=== PATIENT | male | born 1960 | race African-American/Black ===

== ENCOUNTER 2017-10-01 20:12 | Inpatient (IN) | payer MEDICAID, OTHER ==
[~2017-10-01] VITALS: Ht 182.9 cm; Wt 90.0 kg
[2017-10-01 20:58] LABS: BASOPHILS % 0.8 % (0.0-2.0); EOSINOPHILS % 0.9 % (0.0-5.0); HEMATOCRIT. 35.5 % (42.0-52.0); LYMPHOCYTES % 13.7 % (20.0-50.0); MEAN CORPUSCULAR HEMOGLOBIN 27.9 pg (28.0-32.0); MEAN CORPUSCULAR VOLUME 82.5 fL (80.0-94.0); MEAN PLATELET VOLUME 9.4 fl (7.4-10.4); MONOCYTES % 12.2 % (2.0-8.0); NEUTROPHILS % 72.4 % (40.0-76.0); PLATELET 241 x1000/uL (130-400); RED CELL DISTRIBUTION WIDTH 14.5 % (11.6-14.6)
[2017-10-01 21:00] LABS: CHLORIDE 105 mEq/L (98-107)
[2017-10-01 21:01] LABS: INR 1.1; PROTHROMBIN TIME 11.6 sec (9.4-11.6)
[2017-10-01] MEDS ORDERED: MORPHINE SULFATE 2 MG/ML CPJ (NOT FOR IM USE) IV ONE (22:00)
[2017-10-01] MEDS ORDERED: LABETALOL HCL 20MG/4ML CARPUJECT IV ONE ×2 (22:00→23:30)
[2017-10-01] MEDS ORDERED: FUROSEMIDE 20MG/2ML VIAL IVP ONE (22:00)
[2017-10-01] MEDS ORDERED: MORPHINE SULFATE 4 MG/ML CPJ (NOT FOR IM USE) IV ONE (22:17)
[2017-10-01] MEDS ORDERED: CEFTRIAXONE 1 G PREMIX 50 ML IV ONE (23:00)
[2017-10-01] MEDS ORDERED: ASPIRIN 325MG EC TABLET PO ONE (23:00)
[2017-10-01] MEDS: AZITHROMYCIN 500 MG TABLET PO SCH (23:49)
[2017-10-02] MEDS ORDERED: LABETALOL HCL 20MG/4ML CARPUJECT IV SCH (00:17)
[2017-10-02 01:30] LABS: *AMPHETAMINES SCREEN URINE NEGATIVE (NEGATIVE); *BARBITURATES SCREEN URINE NEGATIVE (NEGATIVE); *BENZODIAZEPINES SCREEN URINE NEGATIVE (NEGATIVE); *COCAINE SCREEN URINE NEGATIVE (NEGATIVE); CANNABINOID URINE SCREEN NEGATIVE (NEGATIVE); METHADONE URINE SCREEN NEGATIVE (NEGATIVE)
[2017-10-02] MEDS ORDERED: POTASSIUM CHLORIDE 20MEQ TABLET SR PO ONE (01:30)
[2017-10-02 01:31] LABS: OPIATES URINE SCREEN PRESUMTIVE POSITIVE (NEGATIVE); PHENCYCLIDINE URINE SCREEN NEGATIVE (NEGATIVE)
[2017-10-02] MEDS: CLONIDINE 0.3MG TABLET PO PRN ×2 (06:04→11:33)
[2017-10-02] MEDS: LISINOPRIL 20MG TABLET PO SCH (06:38)
[2017-10-02] MEDS ORDERED: HYDR-4134 PO (08:08)
[2017-10-02] MEDS ORDERED: INSU100I28 SQ (08:08)
[2017-10-02] MEDS ORDERED: CLON0.1T PO (08:08)
[2017-10-02] MEDS ORDERED: LOSA25TA12 PO (08:08)
[2017-10-02] MEDS ORDERED: FURO40TA5 PO (08:08)
[2017-10-02] MEDS: FUROSEMIDE 40MG TABLET PO SCH (08:53)
[2017-10-02] MEDS: HYDRALAZINE HCL 50MG TABLET PO SCH ×3 (08:53→20:48)
[2017-10-02] MEDS: LOSARTAN POTASSIUM 25 MG TABLET PO SCH (08:53)
[2017-10-02] MEDS: CLONIDINE 0.1MG TABLET PO SCH ×3 (08:54→20:48)
[2017-10-02] MEDS: AZITHROMYCIN 500 MG TABLET PO SCH (08:55)
[2017-10-02] MEDS ORDERED: [UNRECOGNIZED DRUG - OTHER] SQ SCH (09:00)
[2017-10-02] MEDS ORDERED: INSULIN GLARGINE HUM REC ANLOG 22 UNIT SQ SCH (09:00)
[2017-10-02] MEDS: IPRATROPIUM/ALBUTEROL 0.5-3(2.5)MG/3ML NEB HHN SCH ×3 (09:28→20:52)
[2017-10-02 09:55] VITALS: BP 183/79
[2017-10-02] MEDS ORDERED: INSULIN GLARGINE UD 100 UNITS/ML SYR SUBCUT SCH (10:00)
[2017-10-02] MEDS ORDERED: DEXTROSE 50% WATER 50ML SYRINGE IV PRN (12:15)
[2017-10-02] MEDS: INSULIN LISPRO 100 UNITS/ML SUBCUT SCH ×6 (12:30→21:21)
[2017-10-02 16:00] VITALS: BP 150/69
[2017-10-02] MEDS: BLOOD SUGAR DIAGNOSTIC STRIP TEST SCH ×2 (17:22→20:05)
[2017-10-02] MEDS ORDERED: POTASSIUM CHLORIDE 20MEQ TABLET SR PO NR (18:24)
[2017-10-02 20:00] VITALS: BP 169/76
[2017-10-02] MEDS: ACETAMINOPHEN 325MG TABLET PO PRN (20:47)
[2017-10-02] MEDS: PIPERACILLIN/TAZ 3.375G PREMIX 50 ML IV SCH (21:07)
[2017-10-02] MEDS: INSULIN GLARGINE UD 100 UNITS/ML SYR SUBCUT SCH (21:16)
[2017-10-03] VITALS (7 sets, daily range): BP systolic 136–215; BP diastolic 60–91
[2017-10-03] MEDS: IPRATROPIUM/ALBUTEROL 0.5-3(2.5)MG/3ML NEB HHN SCH ×5 (00:35→21:43)
[2017-10-03] MEDS: PIPERACILLIN/TAZ 3.375G PREMIX 50 ML IV SCH ×3 (04:56→21:14)
[2017-10-03] MEDS: HYDRALAZINE HCL 50MG TABLET PO SCH ×3 (05:00→21:13)
[2017-10-03] MEDS: CLONIDINE 0.1MG TABLET PO SCH ×3 (05:00→21:14)
[2017-10-03] MEDS ORDERED: POTASSIUM CHLORIDE 20MEQ TABLET SR PO SCH (05:45)
[2017-10-03 05:58] LABS: BASOPHILS % 0.6 % (0.0-2.0); EOSINOPHILS % 3.4 % (0.0-5.0); HEMATOCRIT. 27.6 % (42.0-52.0); LYMPHOCYTES % 22.1 % (20.0-50.0); MEAN CORPUSCULAR VOLUME 82.8 fL (80.0-94.0); MONOCYTES % 12.3 % (2.0-8.0); NEUTROPHILS % 61.6 % (40.0-76.0); PLATELET 212 x1000/uL (130-400); RED BLOOD CELL COUNT 3.33 mill/uL (4.7-6.1); RED CELL DISTRIBUTION WIDTH 14.1 % (11.6-14.6)
[2017-10-03] MEDS: BLOOD SUGAR DIAGNOSTIC STRIP TEST SCH ×4 (06:05→21:12)
[2017-10-03 06:29] LABS: HEMOGLOBIN. 9.3 g/dL (14.0-18.0)
[2017-10-03] MEDS: INSULIN LISPRO 100 UNITS/ML SUBCUT SCH ×7 (06:56→21:00)
[2017-10-03] MEDS: LOSARTAN POTASSIUM 25 MG TABLET PO SCH (08:07)
[2017-10-03] MEDS: ENOXAPARIN 40MG/0.4ML SYR SUBCUT SCH (08:07)
[2017-10-03] MEDS: FUROSEMIDE 40MG TABLET PO SCH (08:07)
[2017-10-03] MEDS: LISINOPRIL 20MG TABLET PO SCH (08:07)
[2017-10-03] MEDS: INSULIN GLARGINE UD 100 UNITS/ML SYR SUBCUT SCH ×2 (09:18→21:31)
[2017-10-03] MEDS: CLONIDINE 0.3MG TABLET PO PRN ×2 (09:20→23:50)
[2017-10-03] MEDS: AMLODIPINE 5MG TABLET PO SCH ×2 (12:34→21:13)
[2017-10-03] MEDS: FUROSEMIDE 40MG/4ML VIAL IVP SCH ×2 (12:34→17:32)
[2017-10-03] MEDS ORDERED: GUAIFENESIN 200MG TABLET PO PRN (13:30)
[2017-10-03] MEDS: LOSARTAN POTASSIUM 50 MG TABLET PO SCH (17:33)
[2017-10-03] MEDS: GUAIFENESIN 600MG ER TABLET PO SCH (21:13)
[2017-10-04] VITALS: BP 211/86
[2017-10-04] MEDS: HYDRALAZINE 20MG/ML VIAL IV PRN ×2 (01:07→13:06)
[2017-10-04 04:00] VITALS: BP 168/79
[2017-10-04] MEDS: IPRATROPIUM/ALBUTEROL 0.5-3(2.5)MG/3ML NEB HHN SCH ×6 (04:37→20:18)
[2017-10-04] MEDS: PIPERACILLIN/TAZ 3.375G PREMIX 50 ML IV SCH ×2 (05:01→12:57)
[2017-10-04] MEDS: CLONIDINE 0.1MG TABLET PO SCH ×3 (05:02→22:04)
[2017-10-04] MEDS: HYDRALAZINE HCL 50MG TABLET PO SCH ×3 (05:02→22:03)
[2017-10-04 05:51] LABS: BASOPHILS % 0.7 % (0.0-2.0); EOSINOPHILS % 3.1 % (0.0-5.0); HEMATOCRIT. 27.9 % (42.0-52.0); HEMOGLOBIN. 9.5 g/dL (14.0-18.0); LYMPHOCYTES % 19.1 % (20.0-50.0); MEAN CORPUSCULAR HEMOGLOBIN 28.1 pg (28.0-32.0); MEAN CORPUSCULAR VOLUME 82.4 fL (80.0-94.0); MEAN PLATELET VOLUME 9.7 fl (7.4-10.4); MONOCYTES % 11.6 % (2.0-8.0); NEUTROPHILS % 65.5 % (40.0-76.0); PLATELET 238 x1000/uL (130-400); RED BLOOD CELL COUNT 3.38 mill/uL (4.7-6.1); RED CELL DISTRIBUTION WIDTH 14.1 % (11.6-14.6)
[2017-10-04] MEDS: BLOOD SUGAR DIAGNOSTIC STRIP TEST SCH ×8 (06:04→23:27)
[2017-10-04] MEDS ORDERED: POTASSIUM CHLORIDE 20MEQ TABLET SR PO NR ×2 (06:33→11:00)
[2017-10-04] MEDS: FUROSEMIDE 40MG/4ML VIAL IVP SCH (06:45)
[2017-10-04] MEDS: INSULIN LISPRO 100 UNITS/ML SUBCUT SCH ×7 (06:46→21:00)
[2017-10-04 08:00] VITALS: BP 165/75
[2017-10-04] MEDS: GUAIFENESIN 600MG ER TABLET PO SCH ×2 (09:26→22:03)
[2017-10-04] MEDS: LOSARTAN POTASSIUM 50 MG TABLET PO SCH ×2 (09:26→17:14)
[2017-10-04] MEDS: AMLODIPINE 5MG TABLET PO SCH ×2 (09:26→22:01)
[2017-10-04] MEDS: ENOXAPARIN 40MG/0.4ML SYR SUBCUT SCH (09:27)
[2017-10-04] MEDS: INSULIN GLARGINE UD 100 UNITS/ML SYR SUBCUT SCH ×3 (12:57→23:20)
[2017-10-04] MEDS: SPIRONOLACTONE 25MG TABLET PO SCH (17:14)
[2017-10-04] MEDS: FUROSEMIDE 100MG/10ML VIAL IVP SCH (17:14)
[2017-10-04] MEDS ORDERED: CEFTRIAXONE 2 G in DEXTROSE 5% WATER 50 ML IV SCH (18:00)
[2017-10-04] MEDS ORDERED: AZITHROMYCIN 500 MG in DEXT 5% WATER 250 ML IV SCH (19:00)
[2017-10-04 20:00] VITALS: BP 155/75
[2017-10-04] MEDS: CEFTRIAXONE 2 G in DEXTROSE 5% WATER 50 ML IV SCH (21:00)
[2017-10-04] MEDS: AZITHROMYCIN 500 MG in DEXT 5% WATER 250 ML IV SCH (22:00)
[2017-10-04] MEDS: MINOXIDIL 2.5MG TABLET PO SCH (22:05)
[2017-10-04] MEDS: FAMOTIDINE 20MG TABLET PO SCH (22:06)
[2017-10-05] VITALS: BP 156/76
[2017-10-05] MEDS: IPRATROPIUM/ALBUTEROL 0.5-3(2.5)MG/3ML NEB HHN SCH ×7 (00:02→20:53)
[2017-10-05 05:44] LABS: BASOPHILS % 1.2 % (0.0-2.0); EOSINOPHILS % 7.6 % (0.0-5.0); HEMATOCRIT. 28.4 % (42.0-52.0); HEMOGLOBIN. 9.6 g/dL (14.0-18.0); LYMPHOCYTES % 23.3 % (20.0-50.0); MEAN CORPUSCULAR HEMOGLOBIN 27.7 pg (28.0-32.0); MEAN CORPUSCULAR VOLUME 82.4 fL (80.0-94.0); MEAN PLATELET VOLUME 9.4 fl (7.4-10.4); MONOCYTES % 11.7 % (2.0-8.0); NEUTROPHILS % 56.2 % (40.0-76.0); PLATELET 272 x1000/uL (130-400); RED BLOOD CELL COUNT 3.44 mill/uL (4.7-6.1); RED CELL DISTRIBUTION WIDTH 14.4 % (11.6-14.6)
[2017-10-05 06:00] VITALS: BP 184/81
[2017-10-05] MEDS: HYDRALAZINE HCL 50MG TABLET PO SCH ×4 (06:00→21:06)
[2017-10-05] MEDS: INSULIN LISPRO 100 UNITS/ML SUBCUT SCH ×7 (06:45→21:00)
[2017-10-05] MEDS: BLOOD SUGAR DIAGNOSTIC STRIP TEST SCH ×4 (06:45→21:07)
[2017-10-05] MEDS: CLONIDINE 0.1MG TABLET PO SCH ×3 (06:47→21:05)
[2017-10-05] MEDS: HYDRALAZINE 20MG/ML VIAL IV PRN (06:48)
[2017-10-05 06:50] LABS: CHLORIDE 104 mEq/L (98-107)
[2017-10-05 06:56] LABS: PHOSPHORUS 3.2 mg/dL (2.5-4.9)
[2017-10-05] MEDS: ENOXAPARIN 40MG/0.4ML SYR SUBCUT SCH (08:42)
[2017-10-05] MEDS: FUROSEMIDE 100MG/10ML VIAL IVP SCH ×2 (08:42→17:34)
[2017-10-05] MEDS: GUAIFENESIN 600MG ER TABLET PO SCH ×2 (08:42→21:06)
[2017-10-05] MEDS: MINOXIDIL 2.5MG TABLET PO SCH ×2 (08:43→21:06)
[2017-10-05] MEDS: SPIRONOLACTONE 25MG TABLET PO SCH (08:43)
[2017-10-05] MEDS: LOSARTAN POTASSIUM 50 MG TABLET PO SCH ×2 (08:43→17:33)
[2017-10-05] MEDS: AMLODIPINE 5MG TABLET PO SCH ×2 (08:43→21:06)
[2017-10-05] MEDS: ACETAMINOPHEN 325MG TABLET PO PRN (08:45)
[2017-10-05] MEDS: INSULIN GLARGINE UD 100 UNITS/ML SYR SUBCUT SCH ×2 (12:38→21:05)
[2017-10-05] MEDS ORDERED: POTASSIUM CHLORIDE 20MEQ TABLET SR PO NR (13:00)
[2017-10-05] MEDS ORDERED: MAGNESIUM 2 G PREMIX 50 ML IV NR (14:00)
[2017-10-05] MEDS: CLONIDINE 0.3MG TABLET PO PRN (14:47)
[2017-10-05 20:00] VITALS: BP 178/72
[2017-10-05] MEDS: CEFTRIAXONE 2 G in DEXTROSE 5% WATER 50 ML IV SCH (21:04)
[2017-10-05] MEDS: SILDENAFIL CITRATE 20MG TABLET PO SCH (21:06)
[2017-10-05] MEDS: FAMOTIDINE 20MG TABLET PO SCH (21:06)
[2017-10-05] MEDS: AZITHROMYCIN 500 MG in DEXT 5% WATER 250 ML IV SCH (21:59)
[2017-10-06] VITALS: BP 139/62
[2017-10-06] MEDS: IPRATROPIUM/ALBUTEROL 0.5-3(2.5)MG/3ML NEB HHN SCH ×5 (00:21→15:48)
[2017-10-06 04:00] VITALS: BP 168/73
[2017-10-06] MEDS: INSULIN LISPRO 100 UNITS/ML SUBCUT SCH ×7 (06:17→21:47)
[2017-10-06] MEDS: CLONIDINE 0.1MG TABLET PO SCH ×3 (06:17→21:26)
[2017-10-06] MEDS: BLOOD SUGAR DIAGNOSTIC STRIP TEST SCH ×4 (06:17→21:31)
[2017-10-06] MEDS: SILDENAFIL CITRATE 20MG TABLET PO SCH ×3 (06:17→21:29)
[2017-10-06] MEDS: FUROSEMIDE 100MG/10ML VIAL IVP SCH ×2 (06:17→17:58)
[2017-10-06] MEDS: HYDRALAZINE HCL 50MG TABLET PO SCH ×3 (06:17→21:26)
[2017-10-06 06:49] LABS: BASOPHILS % 2.2 % (0.0-2.0); EOSINOPHILS % 10.4 % (0.0-5.0); HEMATOCRIT. 30.3 % (42.0-52.0); HEMOGLOBIN. 10.3 g/dL (14.0-18.0); LYMPHOCYTES % 23.5 % (20.0-50.0); MEAN CORPUSCULAR HEMOGLOBIN 27.7 pg (28.0-32.0); MEAN CORPUSCULAR VOLUME 81.7 fL (80.0-94.0); MEAN PLATELET VOLUME 9.2 fl (7.4-10.4); MONOCYTES % 10.6 % (2.0-8.0); NEUTROPHILS % 53.3 % (40.0-76.0); PLATELET 327 x1000/uL (130-400); RED BLOOD CELL COUNT 3.71 mill/uL (4.7-6.1); RED CELL DISTRIBUTION WIDTH 14.3 % (11.6-14.6)
[2017-10-06 07:09] LABS: CHLORIDE 104 mEq/L (98-107)
[2017-10-06 07:25] LABS: PHOSPHORUS 3.1 mg/dL (2.5-4.9)
[2017-10-06 08:00] VITALS: BP 146/54
[2017-10-06] MEDS: MINOXIDIL 2.5MG TABLET PO SCH ×2 (09:16→17:57)
[2017-10-06] MEDS: ENOXAPARIN 40MG/0.4ML SYR SUBCUT SCH (09:16)
[2017-10-06] MEDS: AMLODIPINE 5MG TABLET PO SCH ×2 (09:17→21:27)
[2017-10-06] MEDS: POTASSIUM CHLORIDE 20MEQ TABLET SR PO SCH (09:17)
[2017-10-06] MEDS: SPIRONOLACTONE 50MG TABLET PO SCH (09:18)
[2017-10-06] MEDS: LOSARTAN POTASSIUM 50 MG TABLET PO SCH ×2 (09:18→17:57)
[2017-10-06] MEDS: GUAIFENESIN 600MG ER TABLET PO SCH ×2 (09:18→21:27)
[2017-10-06] MEDS: INSULIN GLARGINE UD 100 UNITS/ML SYR SUBCUT SCH ×2 (11:30→22:35)
[2017-10-06 12:00] VITALS: BP 197/79
[2017-10-06 16:00] VITALS: BP 185/78
[2017-10-06] MEDS: BENZONATATE 100MG CAPSULE PO SCH (17:57)
[2017-10-06 20:00] VITALS: BP 169/66
[2017-10-06] MEDS: CEFTRIAXONE 2 G in DEXTROSE 5% WATER 50 ML IV SCH (21:25)
[2017-10-06] MEDS: FAMOTIDINE 20MG TABLET PO SCH (21:27)
[2017-10-06] MEDS: AZITHROMYCIN 500 MG TABLET PO SCH (21:28)
[2017-10-07] VITALS: BP 155/60
[2017-10-07] MEDS: BENZONATATE 100MG CAPSULE PO SCH ×3 (00:42→17:52)
[2017-10-07] MEDS: MINOXIDIL 2.5MG TABLET PO SCH ×2 (00:47→05:26)
[2017-10-07 04:00] VITALS: BP 192/85
[2017-10-07] MEDS: HYDRALAZINE HCL 50MG TABLET PO SCH (05:25)
[2017-10-07] MEDS: SILDENAFIL CITRATE 20MG TABLET PO SCH ×2 (05:26→14:48)
[2017-10-07] MEDS: CLONIDINE 0.1MG TABLET PO SCH ×3 (05:29→22:00)
[2017-10-07] MEDS: FUROSEMIDE 100MG/10ML VIAL IVP SCH (06:15)
[2017-10-07] MEDS: BLOOD SUGAR DIAGNOSTIC STRIP TEST SCH ×4 (06:46→21:00)
[2017-10-07] MEDS: INSULIN LISPRO 100 UNITS/ML SUBCUT SCH ×6 (07:07→21:58)
[2017-10-07 08:16] VITALS: BP 179/82
[2017-10-07] MEDS: SPIRONOLACTONE 50MG TABLET PO SCH (08:18)
[2017-10-07] MEDS: GUAIFENESIN 600MG ER TABLET PO SCH ×2 (08:18→21:46)
[2017-10-07] MEDS: LOSARTAN POTASSIUM 50 MG TABLET PO SCH ×2 (08:19→17:52)
[2017-10-07] MEDS: AMLODIPINE 5MG TABLET PO SCH (08:19)
[2017-10-07] MEDS: POTASSIUM CHLORIDE 20MEQ TABLET SR PO SCH (08:19)
[2017-10-07 08:20] LABS: BASOPHILS % 1.8 % (0.0-2.0); EOSINOPHILS % 8.1 % (0.0-5.0); HEMATOCRIT. 31.4 % (42.0-52.0); HEMOGLOBIN. 10.4 g/dL (14.0-18.0); LYMPHOCYTES % 21.5 % (20.0-50.0); MEAN CORPUSCULAR HEMOGLOBIN 27.3 pg (28.0-32.0); MEAN CORPUSCULAR VOLUME 82.2 fL (80.0-94.0); MEAN PLATELET VOLUME 8.7 fl (7.4-10.4); MONOCYTES % 10.5 % (2.0-8.0); NEUTROPHILS % 58.1 % (40.0-76.0); PLATELET 358 x1000/uL (130-400); RED BLOOD CELL COUNT 3.81 mill/uL (4.7-6.1); RED CELL DISTRIBUTION WIDTH 14.2 % (11.6-14.6)
[2017-10-07 08:54] LABS: CHLORIDE 103 mEq/L (98-107)
[2017-10-07 09:15] VITALS: BP 173/76
[2017-10-07] MEDS: ENOXAPARIN 40MG/0.4ML SYR SUBCUT SCH (09:24)
[2017-10-07] MEDS: CLONIDINE 0.3MG TABLET PO PRN (09:24)
[2017-10-07] MEDS: INSULIN GLARGINE UD 100 UNITS/ML SYR SUBCUT SCH ×2 (09:28→22:00)
[2017-10-07] MEDS ORDERED: SPIRONOLACTONE 50MG TABLET PO SCH (10:00)
[2017-10-07] MEDS: NIFEDIPINE XL 60MG TAB PO SCH ×2 (10:20→21:46)
[2017-10-07 11:47] VITALS: BP 138/63
[2017-10-07] MEDS ORDERED: KCL 10MEQ/50ML PREMIX 50 ML IV SCH (13:00)
[2017-10-07] MEDS: FUROSEMIDE 80MG TABLET PO SCH (17:52)
[2017-10-07 20:00] VITALS: BP 149/75
[2017-10-07] MEDS: IPRATROPIUM/ALBUTEROL 0.5-3(2.5)MG/3ML NEB HHN SCH (20:50)
[2017-10-07] MEDS ORDERED: AMLODIPINE 5MG TABLET PO SCH (21:00)
[2017-10-07] MEDS: CEFTRIAXONE 2 G in DEXTROSE 5% WATER 50 ML IV SCH (21:46)
[2017-10-07] MEDS: FAMOTIDINE 20MG TABLET PO SCH (21:46)
[2017-10-07] MEDS: AZITHROMYCIN 500 MG TABLET PO SCH (21:46)
[2017-10-07] MEDS: MINOXIDIL 10MG TABLET PO SCH (21:47)
[2017-10-08] VITALS: BP 130/66
[2017-10-08] MEDS: BENZONATATE 100MG CAPSULE PO SCH ×2 (00:05→08:45)
[2017-10-08] MEDS: IPRATROPIUM/ALBUTEROL 0.5-3(2.5)MG/3ML NEB HHN SCH ×3 (00:12→08:00)
[2017-10-08 04:00] VITALS: BP 147/65
[2017-10-08] MEDS: FUROSEMIDE 80MG TABLET PO SCH (05:58)
[2017-10-08] MEDS: CLONIDINE 0.1MG TABLET PO SCH (06:01)
[2017-10-08] MEDS: BLOOD SUGAR DIAGNOSTIC STRIP TEST SCH ×2 (06:01→11:55)
[2017-10-08] MEDS: INSULIN LISPRO 100 UNITS/ML SUBCUT SCH ×2 (06:21→12:08)
[2017-10-08 07:41] LABS: BASOPHILS % 1.4 % (0.0-2.0); EOSINOPHILS % 7.3 % (0.0-5.0); HEMATOCRIT. 31.7 % (42.0-52.0); HEMOGLOBIN. 10.7 g/dL (14.0-18.0); LYMPHOCYTES % 30.1 % (20.0-50.0); MEAN CORPUSCULAR HEMOGLOBIN 27.7 pg (28.0-32.0); MEAN PLATELET VOLUME 8.6 fl (7.4-10.4); MONOCYTES % 10.3 % (2.0-8.0); NEUTROPHILS % 50.9 % (40.0-76.0); PLATELET 404 x1000/uL (130-400); RED BLOOD CELL COUNT 3.86 mill/uL (4.7-6.1); RED CELL DISTRIBUTION WIDTH 14.2 % (11.6-14.6)
[2017-10-08 07:57] VITALS: BP 152/77
[2017-10-08 07:58] LABS: CHLORIDE 106 mEq/L (98-107)
[2017-10-08 08:06] LABS: PHOSPHORUS 3.6 mg/dL (2.5-4.9)
[2017-10-08] MEDS: GUAIFENESIN 600MG ER TABLET PO SCH (08:45)
[2017-10-08] MEDS: LOSARTAN POTASSIUM 50 MG TABLET PO SCH (08:45)
[2017-10-08] MEDS: POTASSIUM CHLORIDE 20MEQ TABLET SR PO SCH (08:46)
[2017-10-08] MEDS: MINOXIDIL 10MG TABLET PO SCH (08:46)
[2017-10-08] MEDS: ENOXAPARIN 40MG/0.4ML SYR SUBCUT SCH (08:49)
[2017-10-08] MEDS ORDERED: SPIRONOLACTONE 50MG TABLET PO SCH (09:00)
[2017-10-08] MEDS: NIFEDIPINE XL 60MG TAB PO SCH (10:28)
[2017-10-08] MEDS: INSULIN GLARGINE UD 100 UNITS/ML SYR SUBCUT SCH (10:31)
[2017-10-08 12:00] VITALS: BP 179/81
[2017-10-08] MEDS: CLONIDINE 0.3MG TABLET PO PRN (12:07)
== END 2017-10-08 14:15 | disposition home or self-care (01) | DRG 720 ==
LOC: ER 20:12 → 5WST 23:55 → ENRESERV 10-02 05:14
PROVIDERS: ADMIT Internal Medicine; ATTEND Internal Medicine
DX: A41.9 Sepsis, unspecified organism (principal); J96.01 Acute respiratory failure with hypoxia; I50.43 Acute on chronic combined systolic (congestive) and diastolic (congestive) heart failure; N17.9 Acute kidney failure, unspecified; J18.9 Pneumonia, unspecified organism; E11.22 Type 2 diabetes mellitus with diabetic chronic kidney disease; I13.0 Hypertensive heart and chronic kidney disease with heart failure and stage 1 through stage 4 chronic kidney disease, or unspecified chronic kidney disease; R13.10 Dysphagia, unspecified; I27.20 Pulmonary hypertension, unspecified; G47.9 Sleep disorder, unspecified; N18.9 Chronic kidney disease, unspecified; K21.9 Gastro-esophageal reflux disease without esophagitis; E87.6 Hypokalemia; D64.9 Anemia, unspecified; I16.0 Hypertensive urgency; N18.2 Chronic kidney disease, stage 2 (mild); Z82.49 Family history of ischemic heart disease and other diseases of the circulatory system; Z83.3 Family history of diabetes mellitus; Z79.4 Long term (current) use of insulin
CPT/HCPCS: 36415; 71045; 71250; 76770; 78582; 80048; 80053; 80305; 82565; 82962; 83735; 83880; 84100; 84443; 84484; 85025; 85610; 87040; 87086; 93005; 93306; 93970; 94640; 96365; 96366; 96375; 96376; 99285; A9558; J0360; J0456; J0696; J1650; J1815; J1940; J2270; J2543; J3475; J3480; J3490; J7040; J7060; J7620

== ENCOUNTER 2018-07-14 22:52 | Inpatient (IN) | payer MEDICAID, OTHER, SELFPAY ==
[~2018-07-14] VITALS: Ht 169.2 cm; Wt 31.0 kg
[~2018-07-14 22:52] MED LIST: FAMO20TA8 PO; HYDR-4134 PO; INSU100I28 SQ; LOSA50TA20 PO; POTA20TA82 PO
[2018-07-14] MEDS ORDERED: SODIUM CHLORIDE 0.9% 1,000 ML IV ONE (23:53)
[2018-07-15] VITALS (13 sets, daily range): BP systolic 136–199; BP diastolic 67–102
[2018-07-15] MEDS ORDERED: NITROGLYCERIN 0.4MG TABLET SL SL PRN
[2018-07-15] MEDS ORDERED: ASPIRIN 81MG TABLET PO ONE
[2018-07-15 00:09] LABS: BASOPHILS % 0.5 % (0.0-2.0); EOSINOPHILS % 0.1 % (0.0-5.0); HEMATOCRIT. 44.5 % (42.0-52.0); HEMOGLOBIN. 13.5 g/dL (14.0-18.0); LYMPHOCYTES % 7.9 % (20.0-50.0); MEAN CORPUSCULAR HEMOGLOBIN 29.1 pg (28.0-32.0); MEAN CORPUSCULAR VOLUME 95.9 fL (80.0-94.0); MONOCYTES % 3.7 % (2.0-8.0); NEUTROPHILS % 87.8 % (40.0-76.0); PLATELET 218 x1000/uL (130-400); RED BLOOD CELL COUNT 4.64 mill/uL (4.7-6.1); RED CELL DISTRIBUTION WIDTH 15.1 % (11.6-14.6)
[2018-07-15 00:43] LABS: CHLORIDE 84 mEq/L (98-107)
[2018-07-15] MEDS ORDERED: INSULIN REGULAR (DRIP) 100 UNITS in SODIUM CHLORIDE 0.9% 100 ML IV ONE (01:15)
[2018-07-15] MEDS ORDERED: SODIUM CHLORIDE 0.9% 1,000 ML IV ONE ×2 (01:15→04:00)
[2018-07-15] MEDS ORDERED: INSULIN REGULAR (DRIP) 100 UNITS in SODIUM CHLORIDE 0.9% 100 ML IV NR (01:30)
[2018-07-15] MEDS ORDERED: CALCIUM GLUCONATE 1,000 MG in DEXT 5% WATER 100 ML IV ONE (01:30)
[2018-07-15] MEDS ORDERED: ALBUTEROL (0.083%) 2.5MG/3ML NEB HHN SCH (01:30)
[2018-07-15] MEDS ORDERED: DIPHENHYDRAMINE 50MG/ML VIAL IV PRN (06:45)
[2018-07-15] MEDS ORDERED: DOCUSATE SODIUM 100MG CAPSULE PO PRN (06:45)
[2018-07-15] MEDS ORDERED: IPRATROPIUM/ALBUTEROL 0.5-3(2.5)MG/3ML NEB INH PRN (06:45)
[2018-07-15] MEDS ORDERED: GUAIFENESIN 200MG/10ML SUGAR FREE UDC PO PRN (06:45)
[2018-07-15] MEDS ORDERED: MAGNESIUM/ALUMINUM HYDROXIDE/SIMETHICONE 30ML UDC PO PRN (06:45)
[2018-07-15] MEDS ORDERED: HYDROCODONE/ACETAMINOPHEN 5/325MG TABLET PO PRN (06:45)
[2018-07-15] MEDS ORDERED: ONDANSETRON HCL 4MG/2ML INJ IV PRN (06:45)
[2018-07-15] MEDS ORDERED: INSULIN REGULAR (DRIP) 100 UNITS in SODIUM CHLORIDE 0.9% 100 ML IV SCH ×2 (06:45→22:00)
[2018-07-15] MEDS ORDERED: MORPHINE SULFATE 4 MG/ML CPJ (NOT FOR IM USE) IV PRN (06:45)
[2018-07-15] MEDS ORDERED: LORAZEPAM 2MG/ML CPJ IV PRN (06:45)
[2018-07-15] MEDS ORDERED: ACETAMINOPHEN 325MG TABLET PO PRN (06:45)
[2018-07-15 06:48] LABS: CHLORIDE 93 mEq/L (98-107)
[2018-07-15 07:53] LABS: BG BASE EXCESS -19.5 mmol/L (-2.0-2.0); BG CARBOXYHEMOGLOBIN 0.3 % (0.5-1.5); BG DEOXYHEMOGLOBIN 2.3 % (0.0-5.0); BG FRACTION INSPIRED OXYGEN 21; BG HCO3 ACT 8.2 mmol/L (22.0-26.0); BG METHEMOGLOBIN 0.8 % (0.0-1.5); BG OXYGEN SATURATION 97.7 % (92.0-98.5); BG OXYHEMOGLOBIN 96.6 % (94.0-97.0); BG PCO2 25.6 mmHg (35.0-45.0); BG PH 7.123 (7.350-7.450); BG PO2 122.2 mmHg (75.0-100.0); BG SAMPLE SITE RIGHT RADIAL; BG TOTAL HEMOGLOBIN 11.6 g/dL (12.0-18.0); BG VENT MODE ROOM AIR
[2018-07-15] MEDS ORDERED: SODIUM BICARBONATE 8.4% MEQ/ML 50ML VIAL IV SCH (08:45)
[2018-07-15] MEDS ORDERED: SODIUM BICARBONATE 8.4% 1 MEQ/ML 50ML SYR IV ONE ×2 (08:47→09:00)
[2018-07-15] MEDS ORDERED: SODIUM CHLORIDE 0.45% 1,000 ML IV SCH (09:00)
[2018-07-15] MEDS ORDERED: ASPIRIN 81MG EC TABLET PO SCH (09:00)
[2018-07-15] MEDS ORDERED: SODIUM BICARBONATE 4% (2.4MEQ) 5ML VIAL IV ONE (09:06)
[2018-07-15] MEDS ORDERED: LIDOCAINE HCL 1% 20ML VIAL (Pyxis) INJ ONE (09:06)
[2018-07-15] MEDS: CLONIDINE 0.1MG TABLET PO PRN ×2 (13:20→19:59)
[2018-07-15 16:56] LABS: BG BASE EXCESS -0.7 mmol/L (-2.0-2.0); BG CARBOXYHEMOGLOBIN 0.3 % (0.5-1.5); BG DEOXYHEMOGLOBIN 2.4 % (0.0-5.0); BG FRACTION INSPIRED OXYGEN 21; BG HCO3 ACT 23.5 mmol/L (22.0-26.0); BG METHEMOGLOBIN 0.3 % (0.0-1.5); BG OXYGEN SATURATION 97.6 % (92.0-98.5); BG PH 7.421 (7.350-7.450); BG PO2 102.7 mmHg (75.0-100.0); BG SAMPLE SITE RIGHT RADIAL; BG TOTAL HEMOGLOBIN 11.3 g/dL (12.0-18.0); BG VENT MODE ROOM AIR
[2018-07-15] MEDS ORDERED: POTASSIUM CHLORIDE INJ 40 MEQ in DEXT 5% WATER 250 ML IV NR (17:00)
[2018-07-15] MEDS ORDERED: AMLODIPINE 5MG TABLET PO NR (17:00)
[2018-07-15 18:38] LABS: HEMATOCRIT. 33.3 % (42.0-52.0); HEMOGLOBIN. 11.2 g/dL (14.0-18.0); MEAN CORPUSCULAR HEMOGLOBIN 28.6 pg (28.0-32.0); MEAN CORPUSCULAR VOLUME 85.5 fL (80.0-94.0); PLATELET 168 x1000/uL (130-400); RED CELL DISTRIBUTION WIDTH 13.4 % (11.6-14.6)
[2018-07-15 19:39] LABS: PLATELET ESTIMATE NORMAL
[2018-07-15 20:14] LABS: CLARITY URINE CLEAR (CLEAR); COLOR URINE YELLOW (YELLOW); KETONES URINE TRACE (NEGATIVE); LEUKOCYTE ESTERASE URINE NEGATIVE (NEGATIVE); NITRITE URINE NEGATIVE (NEGATIVE); OCCULT BLOOD URINE NEGATIVE (NEGATIVE); PROTEIN URINE 1+ (NEGATIVE); SPECIFIC GRAVITY URINE 1.019 (1.005-1.030); UROBILINOGEN URINE 0.2 E.U./dL (0.2-1.0)
[2018-07-15 20:32] LABS: *AMPHETAMINES SCREEN URINE NEGATIVE (NEGATIVE); *BARBITURATES SCREEN URINE NEGATIVE (NEGATIVE); *BENZODIAZEPINES SCREEN URINE NEGATIVE (NEGATIVE); CANNABINOID URINE SCREEN NEGATIVE (NEGATIVE); OPIATES URINE SCREEN NEGATIVE (NEGATIVE); PHENCYCLIDINE URINE SCREEN NEGATIVE (NEGATIVE)
[2018-07-15 20:33] LABS: *COCAINE SCREEN URINE NEGATIVE (NEGATIVE); METHADONE URINE SCREEN NEGATIVE (NEGATIVE)
[2018-07-15] MEDS ORDERED: BLOOD SUGAR DIAGNOSTIC STRIP TEST SCH (21:00)
[2018-07-15] MEDS ORDERED: NA PHOS,M-B/NA PHOS,DI-BA ENEMA 118ML PR PRN (21:00)
[2018-07-15] MEDS ORDERED: DEXTROSE 50% WATER 50ML SYRINGE IV PRN ×3 (21:15→21:30)
[2018-07-15] MEDS ORDERED: ENOXAPARIN 40MG/0.4ML SYR SUBCUT SCH (21:30)
[2018-07-15] MEDS: AMLODIPINE 5MG TABLET PO SCH (21:50)
[2018-07-15] MEDS: HYDRALAZINE HCL 25MG TABLET PO SCH (21:50)
[2018-07-15] MEDS: BLOOD SUGAR DIAGNOSTIC STRIP TEST SCH ×3 (22:00→23:32)
[2018-07-15] MEDS ORDERED: LEVOFLOXACIN 500MG PREMIX 100 ML IV NR (23:00)
[2018-07-15] MEDS: SODIUM CHLORIDE 0.45% 1,000 ML IV SCH (23:21)
[2018-07-16] VITALS (90 sets, daily range): BP systolic 93–217; BP diastolic 50–107
[2018-07-16] MEDS ORDERED: SPIR25TA6 PO (00:01)
[2018-07-16] MEDS ORDERED: AMLO10TA4 MT (00:01)
[2018-07-16] MEDS ORDERED: TOPXL5 MT (00:01)
[2018-07-16] MEDS ORDERED: ISOS20TA8 PO (00:01)
[2018-07-16] MEDS ORDERED: FURO40TA5 PO (00:01)
[2018-07-16] MEDS: BLOOD SUGAR DIAGNOSTIC STRIP TEST SCH ×15 (00:28→21:10)
[2018-07-16] MEDS: HYDRALAZINE HCL 25MG TABLET PO SCH ×3 (05:30→21:09)
[2018-07-16 05:44] LABS: BASOPHILS % 0.3 % (0.0-2.0); EOSINOPHILS % 0.4 % (0.0-5.0); HEMATOCRIT. 32.3 % (42.0-52.0); HEMOGLOBIN. 10.7 g/dL (14.0-18.0); LYMPHOCYTES % 12.3 % (20.0-50.0); MEAN CORPUSCULAR HEMOGLOBIN 28.6 pg (28.0-32.0); MEAN CORPUSCULAR VOLUME 86.1 fL (80.0-94.0); MEAN PLATELET VOLUME 10.4 fl (7.4-10.4); PLATELET 151 x1000/uL (130-400); RED BLOOD CELL COUNT 3.75 mill/uL (4.7-6.1); RED CELL DISTRIBUTION WIDTH 13.6 % (11.6-14.6)
[2018-07-16] MEDS: SODIUM CHLORIDE 0.45% 1,000 ML IV SCH ×3 (08:38→23:28)
[2018-07-16] MEDS: AMLODIPINE 5MG TABLET PO SCH ×2 (09:01→21:02)
[2018-07-16 09:11] LABS: CHLORIDE 117 mEq/L (98-107)
[2018-07-16 09:18] LABS: LDL CHOLESTEROL 60 mg/dL (5-100); PHOSPHORUS 2.3 mg/dL (2.5-4.9)
[2018-07-16 09:20] LABS: T4 FREE 0.99 ng/dL (0.76-1.46)
[2018-07-16 09:21] LABS: HDL CHOLESTEROL 38 mg/dL (40-59)
[2018-07-16] MEDS: INSULIN GLARGINE UD 100 UNITS/ML SYR SUBCUT SCH (10:01)
[2018-07-16] MEDS ORDERED: BLOOD SUGAR DIAGNOSTIC STRIP TEST SCH (12:50)
[2018-07-16] MEDS: INSULIN LISPRO 100 UNITS/ML SUBCUT SCH ×3 (13:20→21:00)
[2018-07-16] MEDS: CLONIDINE 0.1MG TABLET PO PRN (16:57)
[2018-07-16] MEDS: ASPIRIN 81MG EC TABLET PO SCH (17:50)
[2018-07-16] MEDS: LEVOFLOXACIN 250MG PREMIX 50 ML IV SCH (19:42)
[2018-07-16] MEDS ORDERED: ENOXAPARIN 60MG/0.6ML SYR SUBCUT SCH (21:00)
[2018-07-17] VITALS (44 sets, daily range): BP systolic 116–198; BP diastolic 64–141
[2018-07-17] MEDS: CLONIDINE 0.1MG TABLET PO PRN (02:21)
[2018-07-17] MEDS: HYDRALAZINE HCL 25MG TABLET PO SCH ×2 (05:50→12:51)
[2018-07-17 07:18] LABS: BASOPHILS % 0.9 % (0.0-2.0); EOSINOPHILS % 2.6 % (0.0-5.0); HEMOGLOBIN. 10.1 g/dL (14.0-18.0); LYMPHOCYTES % 24.7 % (20.0-50.0); MEAN CORPUSCULAR HEMOGLOBIN 29.2 pg (28.0-32.0); MEAN CORPUSCULAR VOLUME 86.4 fL (80.0-94.0); MEAN PLATELET VOLUME 10.4 fl (7.4-10.4); MONOCYTES % 7.5 % (2.0-8.0); NEUTROPHILS % 64.3 % (40.0-76.0); PLATELET 115 x1000/uL (130-400); RED BLOOD CELL COUNT 3.47 mill/uL (4.7-6.1); RED CELL DISTRIBUTION WIDTH 13.8 % (11.6-14.6)
[2018-07-17 07:55] LABS: CHLORIDE 111 mEq/L (98-107)
[2018-07-17] MEDS: BLOOD SUGAR DIAGNOSTIC STRIP TEST SCH ×4 (09:00→21:00)
[2018-07-17] MEDS: ASPIRIN 81MG EC TABLET PO SCH ×2 (09:28→16:54)
[2018-07-17] MEDS: AMLODIPINE 5MG TABLET PO SCH (09:28)
[2018-07-17] MEDS: INSULIN GLARGINE UD 100 UNITS/ML SYR SUBCUT SCH (09:29)
[2018-07-17] MEDS: INSULIN LISPRO 100 UNITS/ML SUBCUT SCH ×4 (09:30→21:31)
[2018-07-17] MEDS: SODIUM CHLORIDE 0.45% 1,000 ML IV SCH (09:34)
[2018-07-17] MEDS ORDERED: HYDRALAZINE HCL 25MG TABLET PO SCH (14:00)
[2018-07-17] MEDS ORDERED: CLONIDINE 0.1MG TABLET PO PRN (15:00)
[2018-07-17] MEDS: HYDRALAZINE 20MG/ML VIAL IV PRN (15:26)
[2018-07-17] MEDS ORDERED: HYDRALAZINE 20MG/ML VIAL IV PRN (16:00)
[2018-07-17] MEDS ORDERED: AMLODIPINE 10MG TABLET PO SCH ×2 (16:15→21:00)
[2018-07-17] MEDS: LEVOFLOXACIN 250MG PREMIX 50 ML IV SCH (20:56)
[2018-07-17] MEDS: HYDRALAZINE HCL 100MG TABLET PO SCH (21:29)
[2018-07-17] MEDS ORDERED: HYDRALAZINE HCL 50MG TABLET PO SCH (22:00)
[2018-07-18] VITALS (15 sets, daily range): BP systolic 130–178; BP diastolic 64–94
[2018-07-18] MEDS: HYDRALAZINE 20MG/ML VIAL IV PRN (03:32)
[2018-07-18 05:38] LABS: BASOPHILS % 0.8 % (0.0-2.0); EOSINOPHILS % 3.6 % (0.0-5.0); HEMATOCRIT. 32.9 % (42.0-52.0); HEMOGLOBIN. 11.2 g/dL (14.0-18.0); LYMPHOCYTES % 28.3 % (20.0-50.0); MEAN CORPUSCULAR HEMOGLOBIN 29.1 pg (28.0-32.0); MEAN CORPUSCULAR VOLUME 85.6 fL (80.0-94.0); MEAN PLATELET VOLUME 9.8 fl (7.4-10.4); MONOCYTES % 8.8 % (2.0-8.0); NEUTROPHILS % 58.5 % (40.0-76.0); PLATELET 114 x1000/uL (130-400); RED BLOOD CELL COUNT 3.85 mill/uL (4.7-6.1); RED CELL DISTRIBUTION WIDTH 13.5 % (11.6-14.6)
[2018-07-18 06:14] LABS: CHLORIDE 105 mEq/L (98-107)
[2018-07-18] MEDS: HYDRALAZINE HCL 100MG TABLET PO SCH ×3 (06:26→21:13)
[2018-07-18] MEDS ORDERED: POTASSIUM CHLORIDE 20MEQ TABLET SR PO SCH (08:15)
[2018-07-18] MEDS: BLOOD SUGAR DIAGNOSTIC STRIP TEST SCH ×4 (08:17→21:13)
[2018-07-18] MEDS: ASPIRIN 81MG EC TABLET PO SCH ×2 (08:25→17:14)
[2018-07-18] MEDS: AMLODIPINE 10MG TABLET PO SCH ×2 (08:25→21:14)
[2018-07-18] MEDS: INSULIN LISPRO 100 UNITS/ML SUBCUT SCH ×4 (08:26→21:00)
[2018-07-18] MEDS: INSULIN GLARGINE UD 100 UNITS/ML SYR SUBCUT SCH (10:19)
[2018-07-18] MEDS ORDERED: REGADENOSON 0.4 MG/5 ML IV NR (13:00)
[2018-07-18] MEDS: LOSARTAN POTASSIUM 50 MG TABLET PO SCH (14:21)
[2018-07-18] MEDS ORDERED: LEVOFLOXACIN 500MG PREMIX 100 ML IV SCH (20:00)
[2018-07-19] VITALS (10 sets, daily range): BP systolic 126–162; BP diastolic 53–81
[2018-07-19] MEDS: HYDRALAZINE HCL 100MG TABLET PO SCH ×2 (06:05→13:54)
[2018-07-19] MEDS: INSULIN LISPRO 100 UNITS/ML SUBCUT SCH ×3 (07:20→17:34)
[2018-07-19] MEDS: BLOOD SUGAR DIAGNOSTIC STRIP TEST SCH ×3 (07:27→16:50)
[2018-07-19 07:36] LABS: BASOPHILS % 0.5 % (0.0-2.0); EOSINOPHILS % 3.9 % (0.0-5.0); HEMATOCRIT. 32.5 % (42.0-52.0); HEMOGLOBIN. 11.1 g/dL (14.0-18.0); LYMPHOCYTES % 30.8 % (20.0-50.0); MEAN CORPUSCULAR HEMOGLOBIN 29.2 pg (28.0-32.0); MEAN CORPUSCULAR VOLUME 85.6 fL (80.0-94.0); MEAN PLATELET VOLUME 10.2 fl (7.4-10.4); NEUTROPHILS % 56.8 % (40.0-76.0); PLATELET 107 x1000/uL (130-400); RED CELL DISTRIBUTION WIDTH 13.5 % (11.6-14.6)
[2018-07-19] MEDS ORDERED: REGADENOSON 0.4 MG/5 ML IV ONE (09:35)
[2018-07-19 09:54] LABS: CHLORIDE 106 mEq/L (98-107)
[2018-07-19] MEDS: INSULIN GLARGINE UD 100 UNITS/ML SYR SUBCUT SCH (10:54)
[2018-07-19] MEDS: AMLODIPINE 10MG TABLET PO SCH (10:54)
[2018-07-19] MEDS: ASPIRIN 81MG EC TABLET PO SCH ×2 (10:54→17:33)
[2018-07-19] MEDS: LOSARTAN POTASSIUM 50 MG TABLET PO SCH (10:54)
[2018-07-19 11:09] LABS: PHOSPHORUS 2.4 mg/dL (2.5-4.9)
== END 2018-07-19 19:35 | disposition home or self-care (01) | DRG 190 ==
LOC: ER 22:52 → CVICU 07-15 01:32 → EDBEDREQ 07-15 01:52 → ENRESERV 07-15 18:07 → 3WST 07-18 09:00
PROVIDERS: ADMIT Internal Medicine; ATTEND Internal Medicine
PROC: 05HY33Z Insertion of Infusion Device into Upper Vein, Percutaneous Approach (ICD-10-PCS; principal; 2018-07-15)
PROC: B54MZZA Ultrasonography of Right Upper Extremity Veins, Guidance (ICD-10-PCS; 2018-07-15)
DX: I21.4 Non-ST elevation (NSTEMI) myocardial infarction (principal); J96.00 Acute respiratory failure, unspecified whether with hypoxia or hypercapnia; E11.00 Type 2 diabetes mellitus with hyperosmolarity without nonketotic hyperglycemic-hyperosmolar coma (NKHHC); N17.9 Acute kidney failure, unspecified; D69.6 Thrombocytopenia, unspecified; E11.22 Type 2 diabetes mellitus with diabetic chronic kidney disease; E86.0 Dehydration; E44.1 Mild protein-calorie malnutrition; I48.0 Paroxysmal atrial fibrillation; E11.10 Type 2 diabetes mellitus with ketoacidosis without coma; K92.1 Melena; I50.9 Heart failure, unspecified; E87.5 Hyperkalemia; D64.9 Anemia, unspecified; D72.829 Elevated white blood cell count, unspecified; Z68.1 Body mass index [BMI] 19.9 or less, adult; I13.0 Hypertensive heart and chronic kidney disease with heart failure and stage 1 through stage 4 chronic kidney disease, or unspecified chronic kidney disease; I25.10 Atherosclerotic heart disease of native coronary artery without angina pectoris; I27.20 Pulmonary hypertension, unspecified; J44.9 Chronic obstructive pulmonary disease, unspecified; K21.9 Gastro-esophageal reflux disease without esophagitis; N18.9 Chronic kidney disease, unspecified; Z79.4 Long term (current) use of insulin; Z79.899 Other long term (current) drug therapy; Z82.49 Family history of ischemic heart disease and other diseases of the circulatory system; Z82.3 Family history of stroke; Z83.3 Family history of diabetes mellitus
CPT/HCPCS: 36415; 36569; 36600; 71045; 76937; 78452; 80048; 80061; 80305; 82375; 82805; 82962; 83036; 83735; 83880; 84100; 84439; 84443; 84484; 85007; 85027; 87077; 87186; 93005; 93017; 93306; 94640; 99291; A9500; C1725; J0360; J0610; J1650; J1815; J1956; J2270; J2405; J2785; J3480; J3490; J7030; J7050; J7060; J7611